=== PATIENT | female | born 1995 | race Caucasian/White ===

== ENCOUNTER 2018-05-31 23:53 | Emergency (ER) | payer OTHER ==
[~2018-05-31] VITALS: Ht 162.6 cm; Wt 82.0 kg
[2018-05-31 23:58] VITALS: TEMP 36.8; O2SAT 98; Ht 162.6 cm; Wt 82.0 kg
[2018-06-01] MEDS ORDERED: KETOROLAC TROMETHAMINE 30 MG/ML VIAL IV STA (00:08)
[2018-06-01] MEDS ORDERED: SODIUM CHLORIDE 0.9% 1000ML 1,000 ML IV ONE (00:15)
[2018-06-01 00:30] LABS: BASO % 0.4 %; BASO ABS # 0.03 K/uL (0-0.2); EOS % 1.2 %; EOS ABS # 0.09 K/uL (0-0.5); HEMOGLOBIN 14.6 g/dL (12.0-16.0); IG# 0.01 K/uL (0.00-0.02); LYMPH % 44.1 %; LYMPH ABS # 3.19 K/uL (1.2-3.4); MEAN CELL VOLUME 91.1 fL (80-100); MEAN CORPUSCULAR HEMOGLOBIN 33.3 pg (25-34); MEAN CORPUSCULAR HGB CONC 36.5 g/dl (32-36); MEAN PLATELET VOLUME 9.5 fL (7.4-10.4); MONO ABS # 0.65 K/uL (0.11-0.59); NEUT % 45.2 %; NEUT ABS # 3.26 K/uL (1.4-6.5); PLATELET COUNT 264 K/uL (130-400); RED CELL DISTRIBUTION WIDTH CV 11.4 % (11.5-14.5); RED CELL DISTRIBUTION WIDTH SD 37.6 fL (36.4-46.3); WHITE BLOOD COUNT 7.23 K/uL (4.8-10.8)
[2018-06-01 00:59] LABS: ALBUMIN 3.5 gm/dl (3.4-5.0); ALKALINE PHOSPHATASE 97 U/L (45-117); ALT/SGPT 74 U/L (12-78); AST/SGOT 31 U/L (15-37); BLOOD UREA NITROGEN 13 mg/dl (7-18); CALCIUM 8.4 mg/dl (8.5-10.1); CARBON DIOXIDE 22 mmol/L (21-32); CREATININE 0.77 mg/dl (0.60-1.20); GLUCOSE 96 mg/dl (70-99); LIPASE 171 U/L (73-393); POTASSIUM 3.3 mmol/L (3.5-5.1); SODIUM 141 mmol/L (136-145); TOTAL PROTEIN 7.4 gm/dl (6.4-8.2)
[2018-06-01 01:28] VITALS: BP 92/53; PULSE 76; O2SAT 98
[2018-06-01] MEDS ORDERED: TRAZ100T29 PO (01:35)
[2018-06-01] MEDS ORDERED: TOPI50TA16 PO (01:35)
[2018-06-01] MEDS ORDERED: SERT-234 PO (01:35)
[2018-06-01] MEDS ORDERED: PRAZ2CAP PO (01:35)
--- NOTE | 2018-06-01 06:11 | EMERGENCY ROOM VISIT NOTE ---
History First contact with patient: 23:55 Chief Complaint: CHEST PAIN Stated Complaint: CHEST PAIN/FEELS SHAKY Nursing Triage Summary: pt arrived als from [facility], pt c/o cp that started yesterday and increased today, it is reproducable with palpation, movement and inspiration. and tonight she felt chilled and could not get warm and her hands were tingly. pain radiates from front to back. pt does have a hx of anxiety pt also states that over the last couple weeks she has had intermittant swelling to left side but her left foot is always swollen but denies pain with the swelling History of Present Illness The patient is a 22 year old female who presents to the Emergency Room with complaints of right-sided chest pain that began yesterday and has been increasing throughout the day. The patient's discomfort worsens with certain movement and with deep breathing. The patient reportedly had shaking chills tonight and was having difficulty getting warm. She reports some numbness into her hands and feet. The patient does have a history of anxiety. She is currently under the care of [facility], and arrives with corrections officers. The patient rates her current discomfort a 7/10. She does not have significant lightheadedness or dizziness. She does not have a history of cardiopulmonary disease or diabetes. Review of Systems More than 10 systems were reviewed and otherwise negative with the exception of history of present illness. Past Medical/Surgical History History of anxiety Family History No pertinent family history Social History Smoking Status: Former Smoker Housing Status: other (Incar[place]ation) Current/Historical Medications Scheduled Prazosin Hcl (Minipress), 2 MG PO HS Sertraline (Zoloft), 100 MG PO DAILY Topiramate (Topamax), 50 MG PO BID Trazodone Hcl (Trazodone), 100 MG PO HS Physical Exam Vital Signs Date Time Temp Pulse Resp B/P (MAP) Pulse Ox O2 Delivery O2 Flow Rate FiO2 06/01/18 01:28 76 18 92/53 98 06/01/18 00:00 94 05/31/18 23:58 36.8 90 16 116/68 98 Room Air 05/31/18 23:58 98 Room Air 05/31/18 23:58 98 Room Air Physical Exam VITALS: Vitals are noted on the nurse's note and reviewed by myself. Vital signs stable. GENERAL: Well-developed, well-nourished, white female, who is in no acute distress and resting comfortably. Patient is cooperative with the examination. HEAD: Normocephalic atraumatic. EARS: External ear normal. External auditory canals clear, tympanic membranes pearly krsue without erythema or effusion bilaterally. EYES: Pupils equal round and reactive to light and accommodation. Conjunctivae without injection, sclerae without icterus. Extraocular movements intact. NOSE: Patent, turbinates without inflammation or discharge. MOUTH: Mucous membranes moist. Tonsils are not enlarged. Pharynx without erythema, blood, or exudate. Uvula midline. Airway patent. NECK: Supple without nuchal rigidity. No lymphadenopathy. No thyromegaly. Cervical spine is nontender. HEART: Regular rate and rhythm without murmurs gallops or rubs. LUNGS: Clear to auscultation bilaterally without wheezes, rales or rhonchi. No retractions or accessory muscle use. CHEST: Mild right-sided sternal tenderness on palpation ABDOMEN: Positive normal bowel sounds x 4. Soft, nontender, without masses or organomegaly. No guarding or rebound tenderness. MUSCULOSKELETAL: No muscle atrophy, erythema, or edema noted. Full range of motion in all extremities. Medical Decision & Procedures Laboratory Results 06/01/18 00:15 Red Blood Count 4.39, Mean Corpuscular Volume 91.1, Mean Corpuscular Hemoglobin 33.3, Mean Corpuscular Hemoglobin Concent 36.5, Mean Platelet Volume 9.5, Neutrophils (%) (Auto) 45.2, Lymphocytes (%) (Auto) 44.1, Monocytes (%) (Auto) 9.0, Eosinophils (%) (Auto) 1.2, Basophils (%) (Auto) 0.4, Neutrophils # (Auto) 3.26, Lymphocytes # (Auto) 3.19, Monocytes # (Auto) 0.65, Eosinophils # (Auto) 0.09, Basophils # (Auto) 0.03 06/01/18 00:15 Test 06/01/18 00:10 06/01/18 00:15 Urine Color YELLOW Urine Appearance CLEAR (CLEAR) Urine pH 8.5 (4.5-7.5) Urine Specific [place] 1.009 (1.000-1.030) Urine Protein NEG (NEG) Urine Glucose (UA) NEG (NEG) Urine Ketones NEG (NEG) Urine Occult Blood 2+ (NEG) Urine Nitrite NEG (NEG) Urine Bilirubin NEG (NEG) Urine Urobilinogen NEG (NEG) Urine Leukocyte Esterase TRACE (NEG) Urine WBC (Auto) 1-5 /hpf (0-5) Urine RBC (Auto) 0-4 /hpf (0-4) Urine Hyaline Casts (Auto) 0 /lpf (0-5) Urine Epithelial Cells (Auto) 20-30 /lpf (0-5) Urine Bacteria (Auto) NEG (NEG) Urine Test NEG (NEG) Urine Opiates Screen NEG (NEG) Urine Methadone, Qualitative NEG (NEG) Urine Barbiturates NEG (NEG) Urine Phencyclidine (PCP) Level NEG (NEG) Ur Amphetamine/Methamphetamine NEG (NEG) MDMA (Ecstasy) Screen NEG (NEG) Urine Benzodiazepines Screen NEG (NEG) Urine Cocaine Metabolite NEG (NEG) Urine Marijuana (THC) NEG (NEG) White Blood Count 7.23 K/uL (4.8-10.8) Red Blood Count 4.39 M/uL (4.2-5.4) Hemoglobin 14.6 g/dL (12.0-16.0) Hematocrit 40.0 % (37-47) Mean Corpuscular Volume 91.1 fL (80-100) Mean Corpuscular Hemoglobin 33.3 pg (25-34) Mean Corpuscular Hemoglobin Concent 36.5 g/dl (32-36) Platelet Count 264 K/uL (130-400) Mean Platelet Volume 9.5 fL (7.4-10.4) Neutrophils (%) (Auto) 45.2 % Lymphocytes (%) (Auto) 44.1 % Monocytes (%) (Auto) 9.0 % Eosinophils (%) (Auto) 1.2 % Basophils (%) (Auto) 0.4 % Neutrophils # (Auto) 3.26 K/uL (1.4-6.5) Lymphocytes # (Auto) 3.19 K/uL (1.2-3.4) Monocytes # (Auto) 0.65 K/uL (0.11-0.59) Eosinophils # (Auto) 0.09 K/uL (0-0.5) Basophils # (Auto) 0.03 K/uL (0-0.2) RDW Standard Deviation 37.6 fL (36.4-46.3) RDW Coefficient of Variation 11.4 % (11.5-14.5) Immature Granulocyte % (Auto) 0.1 % Immature Granulocyte # (Auto) 0.01 K/uL (0.00-0.02) D-Dimer 260 ug/L FEU (0-500) Anion Gap 11.0 mmol/L (3-11) Est Creatinine Clear Calc Drug Dose 119.8 ml/min Estimated GFR () 127.9 Estimated GFR (Non- 110.4 BUN/Creatinine Ratio 16.7 (10-20) Calcium Level 8.4 mg/dl (8.5-10.1) Magnesium Level 2.0 mg/dl (1.8-2.4) Total Bilirubin 0.3 mg/dl (0.2-1) Aspartate Amino Transf (AST/SGOT) 31 U/L (15-37) Alanine Aminotransferase (ALT/SGPT) 74 U/L (12-78) Alkaline Phosphatase 97 U/L (45-117) Troponin I < 0.015 ng/ml (0-0.045) Total Protein 7.4 gm/dl (6.4-8.2) Albumin 3.5 gm/dl (3.4-5.0) Globulin 3.9 gm/dl (2.5-4.0) Albumin/Globulin Ratio 0.9 (0.9-2) Lipase 171 U/L (73-393) Thyroid Stimulating Hormone (TSH) 4.090 uIu/ml (0.300-4.500) Medications Administered Medications (Trade) Dose Ordered Sig/Miguelangel Route Start Time Stop Time Status Last Admin Dose Admin Sodium Chloride 1,000 ml @ 999 mls/hr Q1H1M ONCE IV 06/01/18 00:15 06/01/18 01:15 DC 06/01/18 00:15 999 MLS/HR Ketorolac Tromethamine (Toradol Inj) 30 mg NOW STAT IV 06/01/18 00:08 06/01/18 00:10 DC 06/01/18 00:31 30 MG ECG Per My Interpretation Change: Normal sinus rhythm with sinus arrhythmia @[address] abnormality Abnormal ECG No previous ECGs available ED Course Physical exam and history were performed. Nursing notes, EMR, and Medication List were personally reviewed. Patient appears to have chest pain symptoms worsening over the past day. IV access was established and labs were obtained. EKG was performed and reviewed by myself as above. Chest x-ray was reviewed by myself and my attending as showing no acute process. The patient was hydrated with normal saline. She was placed on the front desk monitor. The patient's blood work is as above and was reviewed. She does not have a significantly elevated white blood cell count, gross anemia, bandemia, or significant electrolyte imbalance. Lipase and transaminases are not diagnostic. Troponin and d-dimer 1 are both negative. The patient remained in normal sinus rhythm on the front desk monitor. The case was discussed with my attending physician, and overall we feel she is well for discharge. The patient does not appear to have an acute cardiopulmonary event contributing to her symptoms. She likely has a musculoskeletal etiology, and will be closely followed by the [facility]. The patient and I had a lengthy discussion regarding her findings, and she was comfortable with this. She will otherwise invited back to the ER with any new, worsening, or concerning symptoms. The chart was completed utilizing [employer] Speech Voice Recognition Software. Grammatical errors, random word insertions, pronoun errors, and incomplete sentences are an occasional consequence of this system due to software limitations, ambient noise, and hardware issues. Any formal questions or concerns about the content, text, or information contained within the body of this dictation should be directly addressed to the provider for clarification. . Medical Decision Differential diagnosis includes, but is not limited to: Myocardial infarction, dysrhythmia, pericarditis, pneumothorax, aortic aneurysm/dissection, DVT/PE, anxiety, GERD, PUD, electrolyte imbalance, thyroid disorder, pneumonia, bronchitis, pancreatitis, and others Impression Primary Impression: Non-cardiac chest pain Departure Information Dispostion Home / Self-Care Condition [facility] (PCP) Forms HOME CARE DOCUMENTATION FORM, IMPORTANT VISIT INFORMATION Patient Instructions My [facility] Additional Instructions You were seen and evaluated today on an emergency basis only. This is not a substitute for, or an effort to provide, complete comprehensive medical care. It is not possible to recognize and treat all injuries or illnesses in a single emergency department visit. For this reason it is recommended that you followup with the [facility] for ongoing care and evaluation. You are welcome to return to the emergency department anytime with new, worsening, or concerning symptoms.
--- NOTE | 2018-06-01 07:01 | DIAGNOSTIC IMAGING REPORT ---
CHEST 2 VIEWS ROUTINE CLINICAL HISTORY: Chest pain. COMPARISON STUDY: No previous studies for comparison. FINDINGS: Lung volumes are normal. No consolidation is present. No pneumothorax or pleural effusion is noted. Pulmonary vascularity is normal. Cardiac size is normal. Mediastinal contours are unremarkable. IMPRESSION: No acute cardiopulmonary findings. Electronically signed by: Casey Cabrera M.D. 06/01/2018 7:00 AM Dictated Date/Time: 06/01/2018 6:59 AM
== END 2018-06-01 01:29 ==
LOC: EDSEX 23:53 → EDBD 23:53 → C.EDB 23:57
DX: R07.89 Other chest pain (principal); Z87.891 Personal history of nicotine dependence